=== PATIENT | female | born 1995 | race Two or more races ===

== ENCOUNTER 2025-04-22 15:47 | Emergency (ER) | payer OTHER ==
[~2025-04-22] VITALS: Ht 157.5 cm; Wt 111.1 kg
[2025-04-22] MEDS ORDERED: ONDANSETRON HCL/PF 4 MG/2 ML VIAL ONE (16:35)
[2025-04-22] MEDS ORDERED: LORAZEPAM INJ 2 MG/ML VIAL ONE (16:37)
[2025-04-22] MEDS: LORAZEPAM INJ 2 MG/ML VIAL IV ONE (16:42)
[2025-04-22] MEDS: ONDANSETRON HCL/PF - ER 4 MG/2 ML VIAL IV ONE (16:42)
[2025-04-22] MEDS ORDERED: KETOROLAC TROMETHAMINE INJ 30 MG/ML VIAL ONE (16:52)
[2025-04-22] MEDS: KETOROLAC TROMETHAMINE INJ 30 MG/ML VIAL IV ONE (16:56)
[2025-04-22 17:18] LABS: PREGNANCY TEST URINE QUAL NEGATIVE (NEGATIVE)
[2025-04-22 17:40] VITALS: BP 131/75; TEMP 98.4; O2SAT 99
== END 2025-04-22 17:41 | disposition home or self-care (01) ==
LOC: ER 15:53
DX: M79.631 Pain in right forearm (principal); R07.89 Other chest pain; V43.02XA Car driver injured in collision with other type car in nontraffic accident, initial encounter; Y93.89 Activity, other specified; Y92.410 Unspecified street and highway as the place of occurrence of the external cause; Y99.9 Unspecified external cause status
CPT/HCPCS: 99284; 96374; 96375; 71045; 73090; 84703 ×2; J1885; J2060; J2405 ×2